=== PATIENT | female | born 1990 | race Caucasian/White ===

== ENCOUNTER 2019-01-03 14:52 | Inpatient (IN) ==
[2019-01-04] MEDS ORDERED: BENTYL PO PRN (14:43)
[2019-01-04] MEDS ORDERED: ZOFRAN ODT PO PRN (14:43)
[2019-01-04] MEDS ORDERED: ROBAXIN PO PRN (14:43)
[2019-01-04] MEDS ORDERED: D5W 1,000 ML IV PRN (14:43)
[2019-01-04] MEDS ORDERED: TYLENOL PO PRN (14:43)
[2019-01-04] MEDS ORDERED: TUBERSOL ID ONE (14:43)
[2019-01-04] MEDS ORDERED: SENOKOT PO PRN (14:43)
[2019-01-04] MEDS ORDERED: DULCOLAX PR PRN (14:43)
[2019-01-04] MEDS ORDERED: LIBRIUM PO PRN (14:43)
[2019-01-04] MEDS ORDERED: MAALOX PLUS LIQUID PO PRN (14:43)
[2019-01-04] MEDS ORDERED: SINEMET 25/100 PO PRN (14:43)
[2019-01-04] MEDS ORDERED: IMODIUM PO PRN (14:43)
[2019-01-04] MEDS ORDERED: MOTRIN PO PRN (14:43)
[2019-01-04] MEDS ORDERED: PHENOBARBITAL IV PRN (14:43)
[2019-01-04] MEDS ORDERED: DESYREL PO PRN (14:43)
[2019-01-04] MEDS ORDERED: ZOFRAN IV PRN (14:43)
[2019-01-04 16:37] LABS: HEMATOCRIT 38.5 % (37.0-47.0); MCH 28.9 PG (27-31); MCHC 33.8 g/dL (33-37); MCV 85.6 FL (81-99); MPV 9.2 FL (7.4-10.4); RBC 4.5 XMIL (4.2-5.4); RDW 12.1 % (11.5-14.5); WBC 10.57 X1000 (4.8-10.8)
[2019-01-04 16:48] LABS: AMYLASE 41 U/L (20-200); LIPASE 18 U/L (13-60)
[2019-01-04 16:51] LABS: AGAP 10; ALBUMIN 4.3 g/dL (3.5-5.0); ALKALINE PHOSPHATASE 78 U/L (32-104); BUN 9 mg/dL (8-22); CALCIUM 9.6 mg/dL (8.8-10.2); CHLORIDE 102 mmol/L (98-107); COSMO 274; CREATININE 0.7 mg/dL (0.5-0.9); ESTIMATED GFR > 60; GLUCOSE 100 mg/dL (70-104); GOT 14 U/L (10-30); GPT 14 U/L (10-36); POTASSIUM 3.8 mmol/L (3.5-5.1); SODIUM 138 mmol/L (136-145); TCO2 26 mmol/L (25-35); TOTAL PROTEIN 7.4 g/dL (6.3-8.3)
[2019-01-04 16:54] LABS: INR 0.94; PROTIME 13.1 Seconds (11.0-16.0)
[2019-01-04] MEDS: NICODERM PATCH TD PRN (19:35)
[2019-01-04] MEDS ORDERED: TORADOL IV PRN (20:40)
[2019-01-04] MEDS ORDERED: SUBUTEX SL SCH (21:00)
[2019-01-04] MEDS: ATARAX PO PRN (21:12)
[2019-01-04] MEDS: SEROQUEL PO PRN (21:12)
[2019-01-04 21:14] LABS: UR AMPHETAMINES QUAL PRESUMPTIVE POSITIVE (NONE DETECT); UR BARBITUATES QUAL NONE DETECTED (NONE DETECT); UR BENZODIAZEPIN QUAL PRESUMPTIVE POSITIVE (NONE DETECT); UR CANNABINOIDS QUAL NONE DETECTED (NONE DETECT); UR COCAINE QUAL NONE DETECTED (NONE DETECT); UR METHADONE QUAL NONE DETECTED (NONE DETECT); UR METHAMPHETAMINE QUAL PRESUMPTIVE POSITIVE (NONE DETECT); UR OPIATES QUAL PRESUMPTIVE POSITIVE (NONE DETECT); UR OXYCODONE QUAL NONE DETECTED (NONE DETECT); UR PCP QUAL NONE DETECTED (NONE DETECT); UR PROPOXYPHENE QUAL NONE DETECTED (NONE DETECT); UR TCA QUAL NONE DETECTED (NONE DETECT)
[2019-01-04 21:35] LABS: URINE SOURCE VOIDED
[2019-01-04 21:36] LABS: BILIRUBIN URINE NEGATIVE (NEGATIVE); BLOOD URINE 4+ (NEGATIVE); CLARITY SL. CLOUDY (CLEAR); COLOR YELLOW; GLUCOSE URINE NEGATIVE (NEGATIVE); KETONE URINE TRACE mg/dL (NEGATIVE); LEUKOCYTES URINE TRACE (NEGATIVE); NITRITE URINE POSITIVE (NEGATIVE); PROTEIN URINE 1+(30 mg/dL) mg/dL (NEGATIVE); SP GRAVITY URINE 1.025; UROBILINOGEN URINE NORMAL
[2019-01-04 21:38] LABS: URINE EPITHELIAL CELLS <10 /HPF (<10); URINE RBC 20-40 /HPF (<10); URINE WBC <10 /HPF (<10)
[2019-01-04 21:39] LABS: URINE BACTERIA 1+ /HFP; URINE CAST GRANULAR PRESENT /LPF; URINE CRYSTAL NONE SEEN /HPF; URINE YEAST NONE SEEN /HPF
[2019-01-05] MEDS: PROTONIX PO SCH (06:20)
[2019-01-05] MEDS: FOLIC ACID PO SCH (08:20)
[2019-01-05] MEDS: VITAMIN B-1 PO SCH (08:20)
[2019-01-05] MEDS: THERA M PLUS PO SCH (08:20)
[2019-01-05] MEDS: ROCEPHIN 1 GM in NS 50 ML IV SCH (08:20)
[2019-01-05] MEDS: SUBUTEX SL SCH ×2 (09:24→21:06)
[2019-01-05] MEDS: NICODERM PATCH TD PRN (09:25)
[2019-01-05] MEDS ORDERED: SUBOXONE 2 MG/0.5 MG FILM SL SCH (12:00)
[2019-01-05] MEDS: SEROQUEL PO PRN (22:53)
--- NOTE | 2019-01-05 23:08 | PROGRESS NOTE ---
DATE: 01/05/2019 SUBJECTIVE: Patient notes overall she is feeling better. She tolerated 2 mg Subutex. It did not make her worse. She does note that she has been on fentanyl in the past. She tried Suboxone and it made her symptoms worse. However, the 2 mg Subutex did not. Still, however, having muscle aches, myalgias, and tremors. PHYSICAL EXAM: Temperature 97.4, pulse 77, respiratory 20, BP 98/60.General: Patient is awake, alert. She appears to be in less distress than she was last night. Her symptoms appear improved. HEENT: Normocephalic. Neck: Supple. CARDIOVASCULAR: Regular rate. Chest: Clear and nonlabored. Abdomen: Soft, nondistended. Extremities: Moves all extremities. Neurologic: No changes. ASSESSMENT: 1. Nausea, vomiting. 2. Abdominal pain. 3. Myalgias. 4. Tremors. 5. Paresthesias. 6. Opiate abuse withdrawal and stabilization. 7. Bipolar anxiety. 8. Posttraumatic stress disorder. PLAN: Continue patient in the hospital. Continue Subutex. We will increase to 4 mg twice daily. Continue counseling. Further orders as needed. cc: Vick Youngblood MD
[2019-01-06] MEDS: PROTONIX PO SCH (06:22)
[2019-01-06] MEDS: THERA M PLUS PO SCH (10:02)
[2019-01-06] MEDS: ROCEPHIN 1 GM in NS 50 ML IV SCH (10:02)
[2019-01-06] MEDS: VITAMIN B-1 PO SCH (10:02)
[2019-01-06] MEDS: FOLIC ACID PO SCH (10:02)
[2019-01-06] MEDS: SUBUTEX SL SCH ×2 (10:02→20:28)
[2019-01-06] MEDS ORDERED: SUBUTEX SL ONE (10:19)
[2019-01-06] MEDS ORDERED: NS 1,000 ML IV ONE (13:55)
[2019-01-06] MEDS: NICODERM PATCH TD PRN (17:10)
[2019-01-06] MEDS: ATARAX PO PRN (20:28)
[2019-01-06] MEDS: SEROQUEL PO PRN (20:29)
--- NOTE | 2019-01-07 00:42 | PROGRESS NOTE ---
DATE: 01/06/2019 SUBJECTIVE: Patient notes overall she is feeling better. Notes that her muscle aches are improved. Denies any fevers or chills. Denies any nausea. States she is still fatigued and having muscle aches although they are improved. PHYSICAL EXAMINATION: Vital Signs: Reviewed. She is afebrile. Temperature 97.5 degrees, pulse 54, respiratory 18, BP 95/56. General: Patient is awake, alert, very pleasant talk with. HEENT: Normocephalic. Neck: Supple. Cardiovascular: Regular rate. No murmurs. Chest: Clear and unlabored. Abdomen: Soft, nondistended. Extremities: Moves all extremities. ASSESSMENT: 1. Nausea, vomiting. 2. Abdominal pain. 3. Myalgias. 4. Paresthesias. 5. Paroxysmal sweating. 6. Opiate abuse, withdrawal and stabilization. PLAN: We will continue Subutex. We will increase to 8 mg twice daily. It is certainly highly likely that the patient had fentanyl in her heroin and therefore switching to Suboxone currently would not be in her best interest although needs to stay on Subutex for about 3 to 4 weeks and then can switch to Suboxone. Patient is aware. cc: Vick Youngblood MD
[2019-01-07] MEDS: PROTONIX PO SCH (06:46)
[2019-01-07] MEDS: FOLIC ACID PO SCH (10:40)
[2019-01-07] MEDS: SUBUTEX SL SCH ×2 (10:40→20:53)
[2019-01-07] MEDS: THERA M PLUS PO SCH (10:40)
[2019-01-07] MEDS: VITAMIN B-1 PO SCH (10:40)
[2019-01-07] MEDS: ROCEPHIN 1 GM in NS 50 ML IV SCH (10:40)
[2019-01-07] MEDS: NICODERM PATCH TD PRN (10:49)
[2019-01-07] MEDS ORDERED: SUBUTEX SL ONE (15:00)
[2019-01-07] MEDS: ATARAX PO PRN (20:53)
[2019-01-07] MEDS: SEROQUEL PO PRN (20:53)
--- NOTE | 2019-01-08 01:02 | PROGRESS NOTE ---
DATE: 01/07/2019 SUBJECTIVE: Patient notes overall she is not feeling better. In fact, thinks she may be feeling worse today than she was yesterday. Still having lots of muscle aches that may be worse. PHYSICAL EXAMINATION: Vital Signs: Temperature 97.5 degrees, pulse 54, respiratory 18, BP 95/56. General: Patient is in no current respiratory distress. Pleasant to talk with. HEENT: Normocephalic. Neck: Supple. Cardiovascular: Regular rate. Chest: Clear. Abdomen: Soft. Extremities: Moves all extremities. ASSESSMENT: 1. Nausea, vomiting. 2. Abdominal pain. 3. Myalgias. 4. Paresthesias. 5. Paroxysmal sweating. 6. Opiate abuse, withdrawal and stabilization. PLAN: We will continue Subutex as patient has recently been on fentanyl. We will continue to follow. cc: Vick Youngblood MD
[2019-01-08] MEDS: PROTONIX PO SCH (06:49)
[2019-01-08] MEDS: SUBUTEX SL SCH ×2 (09:38→21:44)
[2019-01-08] MEDS: FOLIC ACID PO SCH (09:38)
[2019-01-08] MEDS: VITAMIN B-1 PO SCH (09:38)
[2019-01-08] MEDS: THERA M PLUS PO SCH (09:38)
[2019-01-08] MEDS: ROCEPHIN 1 GM in NS 50 ML IV SCH (09:39)
[2019-01-08] MEDS ORDERED: NICOTINE GUM BUCCAL ONE (13:18)
[2019-01-08] MEDS ORDERED: SUBUTEX SL ONE (14:00)
[2019-01-08] MEDS: NICODERM PATCH TD PRN (15:40)
--- NOTE | 2019-01-08 17:33 | PROGRESS NOTE ---
DATE: 01/08/2019 SUBJECTIVE: Patient notes she is starting to feel better. Notes that her muscle aches and symptoms that she was having yesterday have improved. States that she has now decided that she wants to go to further inpatient treatment. PHYSICAL: Vital Signs: Reviewed. She is awake, alert, she is in no current respiratory distress. HEENT: Normocephalic. Neck: Supple. CV: Regular rate, no murmurs. Chest: Clear, nonlabored. Abdomen: Soft. Extremities: Moves all extremities. Neuro: No change. ASSESSMENT: 1. Nausea, vomiting. 2. Abdominal pain. 3. Myalgias. 4. Paresthesias. 5. Paroxysmal sweating. 6. Opiate abuse withdrawal and stabilization. 7. Chronic anxiety, depression. PLAN: Overall patient has improved, we will start attempting to wean Suboxone and treat symptoms as they occur, continue counseling. cc: Vick Youngblood MD
[2019-01-08] MEDS: SEROQUEL PO PRN (21:44)
[2019-01-08] MEDS: ATARAX PO PRN (21:44)
[2019-01-09] MEDS: PROTONIX PO SCH (07:03)
[2019-01-09] MEDS: ROCEPHIN 1 GM in NS 50 ML IV SCH (09:08)
[2019-01-09] MEDS: FOLIC ACID PO SCH (09:09)
[2019-01-09] MEDS: SUBUTEX SL SCH ×3 (09:09→20:12)
[2019-01-09] MEDS: VITAMIN B-1 PO SCH (09:09)
[2019-01-09] MEDS: THERA M PLUS PO SCH (09:09)
[2019-01-09] MEDS ORDERED: SUBUTEX SL ONE (15:00)
[2019-01-09] MEDS: NICODERM PATCH TD PRN (16:49)
--- NOTE | 2019-01-09 17:53 | PROGRESS NOTE ---
DATE: 01/09/2019 SUBJECTIVE: Patient notes she is feeling okay, so far she is tolerating weaning dose of Subutex. PHYSICAL: Vital signs reviewed. She is awake, alert, she is in no distress.HEENT: Normocephalic. Neck: Supple. CV: Regular rate. Chest: Clear. Abdomen: Soft. ASSESSMENT: 1. Nausea vomiting. 2. Abdominal pain. 3. Myalgias. 4. Paresthesias. 5. Paroxysmal sweating. 6. Opiate abuse withdrawal and stabilization. PLAN: The patient required a higher dose of Subutex than I would prefer to get back under control. She has been under control with her symptoms for the past couple of days, we have started weaning down her Subutex, we will again wean her Subutex today to 4, 2 and 4. Hopefully tomorrow she can go to 4 and 4 and keep weaning from that pattern. cc: Vick Youngblood MD
[2019-01-09] MEDS: SEROQUEL PO PRN (23:15)
[2019-01-10] MEDS: PROTONIX PO SCH (06:30)
[2019-01-10 08:04] VITALS: BP 104/67
[2019-01-10] MEDS: SUBUTEX SL SCH (09:30)
[2019-01-10] MEDS: THERA M PLUS PO SCH (09:30)
[2019-01-10] MEDS: FOLIC ACID PO SCH (09:30)
[2019-01-10] MEDS: VITAMIN B-1 PO SCH (09:30)
[2019-01-10] MEDS: ROCEPHIN 1 GM in NS 50 ML IV SCH (09:31)
--- NOTE | 2019-01-12 08:26 | HISTORY AND PHYSICAL ---
CHIEF COMPLAINT: Nausea and vomiting. HISTORY OF PRESENT ILLNESS: The patient is a 28-year-old female, who presented to [facility] secondary to nausea, vomiting, abdominal pain, myalgias, use and abuse of opiates. Notes that she has stopped in the past, but at this time her withdrawal symptoms have become too severe, and she is just having difficulty stopping. SOCIAL HISTORY: Patient is single. She is unemployed. Lives at home in [place]. PAST MEDICAL HISTORY: Significant for PTSD, bipolar, anxiety, hypertension, although not currently on medications. ALLERGIES: No known drug allergies. REVIEW OF SYSTEMS: CINA score is 12 secondary to nausea, vomiting, abdominal pain, frequent episodes of diarrhea, myalgias, watery eyes, runny nose, hot and cold chills, tremors, insomnia, fatigue, frequent yawning, frequent restlessness. Denies any chest pain, palpitations. Denies any fevers or chills. Denies any dysuria, frequency, urgency, hesitancy, polyuria or polydipsia. Denies skin rashes, weight loss or weight gain. SUBSTANCE ABUSE HISTORY: The patient notes that she had been sober until just recently and then she had a relapse. Notes that [facility] has custody of her previous child. In 2013, she was in [facility] for 5 days. In 2017, she was in a [facility] for 60 days and remained sober for 6 months until she relapsed. Started drinking alcohol at age 12. Currently, only drinks occasionally. Started stimulants at age 15. Currently has been using IV meth every day. Started opiates at age 18. Has been using heroin half a gram daily IV. She is fairly certain that this has fentanyl mixed in it. Started smoking at age 10; currently smokes a pack a day. FAMILY HISTORY: Noncontributory. PHYSICAL EXAMINATION: VITAL SIGNS: Reviewed and stable. GENERAL: Patient is awake, alert. She is in no current respiratory distress. She is pleasant to talk with, although she is in acute withdrawal. HEENT: Normocephalic. NECK: Supple. CV: Regular rate. No murmurs. CHEST: Clear, nonlabored. ABDOMEN: Soft, nondistended. EXTREMITIES: Moves all extremities. ASSESSMENT: 1. Nausea and vomiting. 2. Abdominal pain. 3. Myalgias. 4. Paresthesias. 5. Paroxysmal sweating. 6. Prior substance use and abuse. 7. Chronic anxiety, depression with bipolar. PLAN: We will admit patient to the hospital, begin counseling. Place her on Suboxone. Treat her symptomatically. Further orders as needed. cc: Vick Youngblood MD
--- NOTE | 2019-01-12 11:23 | DISCHARGE SUMMARY ---
ADMISSION DATE: 01/04/2019 DISCHARGE DATE: 01/09/2019 DISCHARGE DIAGNOSES: 1. Nausea and vomiting with abdominal pain. 2. Myalgias. 3. Paresthesias. 4. Paroxysmal sweating. 5. Bipolar. 6. Posttraumatic stress disorder. 7. Chronic tobacco abuse. Discussed with patient the perils of smoking as well as ways to stop. 8. Polysubstance use and abuse. CONSULTATIONS: None. PROCEDURES: None. BRIEF HOSPITAL COURSE: The patient is a 28-year-old female who presented to [facility]. Subsequently admitted, placed on Suboxone. Initially, her dose had to be increased to 8/2 twice a day, with 2 mg in the afternoon. This got her withdrawal symptoms under control. The patient then decided that she wanted to go to further inpatient rehab. After this had been arranged, we began rapidly weaning her Suboxone. On discharge, she was on 2 mg daily. DISPOSITION: Patient will be discharged to further inpatient rehab. She was not given a prescription for Suboxone. Discussed with her that after rehab she needs to consider naltrexone if she is still having any mental withdrawal. cc: Vick Youngblood MD
== END 2019-01-10 09:35 | disposition home or self-care (01) | DRG 897 ==
LOC: P.MEDSURG 01-04 15:10
PROVIDERS: ADMIT Family Medicine; ATTEND Family Medicine
CPT/HCPCS: 80053; 80104; 80301; 80305; 80307; 80320; 81001; 82055; 82150; 83690; 85027; 85610; 86580; 87088; A9270; G0431; G0434; G0477; G0480; G6040; J0696; S4995